=== PATIENT | female | born 1965 | race Caucasian/White ===

== ENCOUNTER 2019-06-16 11:02 | Day surgery (SDC) | payer OTHER ==
[~2019-06-16] VITALS: Ht 170.2 cm; Wt 104.0 kg
[~2019-06-16 11:02] MED LIST: ACEHYDSO AS; AMOCLA875 PO; AMOX500 PO; ATOM40; Amoxicillin875 MG PO; BUPR150ER PO; CEPH500 PO; CIPR750 PO; Desyrel50 MG; HYDACE5 PO; Keflex500 MG PO; METPHE20 PO; METR500 PO; NAPR500 PO; Norco 5-325 Ta1 EACH PO; OXYACE5T PO; PENVK500 PO; RXOXYACE PO; SYNTHROID0.2 MG PO; Synthroid200 MCG PO; TRAZ50 PO; Ultram50 MG PO
[2019-06-16] MEDS ORDERED: HYDR1TAB94 (11:47)
[2019-06-16] MEDS ORDERED: AMPDEX10CR (11:48)
--- NOTE | 2019-06-16 11:53 | NUR ---
06/16/19 1153 Corbin Russo 1ST IV ATTEMPT IN RH UNSUCCESSFUL, ORSC.RXS 2ND IV ATTEMPT IN LH SUCCESSFUL, ORSC.RXS
--- NOTE | 2019-06-16 12:16 | NUR ---
06/16/19 1216 Josseline Patino SIMETHICONE USED DURING PROCEDURE.
== END 2019-06-16 13:05 | disposition home or self-care (01) ==
LOC: ORSCSDS 11:02
PROVIDERS: Internal Medicine Gastroenterology
PROC: 0DBM8ZX Excision of Descending Colon, Via Natural or Artificial Opening Endoscopic, Diagnostic (ICD-10-PCS; principal; 2019-06-16 12:15)
PROC: 0DBK8ZX Excision of Ascending Colon, Via Natural or Artificial Opening Endoscopic, Diagnostic (ICD-10-PCS; principal; 2019-06-16 12:15)
DX: Z12.11 Encounter for screening for malignant neoplasm of colon (principal); D12.2 Benign neoplasm of ascending colon; D12.4 Benign neoplasm of descending colon; K57.30 Diverticulosis of large intestine without perforation or abscess without bleeding; K44.9 Diaphragmatic hernia without obstruction or gangrene; F41.8 Other specified anxiety disorders; F17.210 Nicotine dependence, cigarettes, uncomplicated; Z79.899 Other long term (current) drug therapy
CPT/HCPCS: 88305; J2704; J7120

== ENCOUNTER 2025-07-24 06:05 | Emergency (ER) | payer OTHER ==
[~2025-07-24] VITALS: Ht 167.6 cm; Wt 117.9 kg
[~2025-07-24 06:05] MED LIST changes: +AMPDEX10CR; +HYDR1TAB94
[2025-07-24] MEDS ORDERED: METFORMIN HCL500 M3 PO (06:44)
[2025-07-24] MEDS ORDERED: TRAZ50 PO (06:44)
[2025-07-24 08:14] LABS: BASOPHILS ABSOLUTE AUTO 0.04 K/mm3 (0.00-0.23); BASOPHILS PERCENT AUTO 1 % (0-2); EOSINOPHILS ABSOLUTE AUTO 0.06 K/mm3 (0.00-0.68); EOSINOPHILS PERCENT AUTO 1 % (0-6); Hematocrit 38.9 % (33.0-51.0); Hemoglobin 13.4 g/dL (11.5-16.0); IMMATURE GRAN ABSOLUTE AUTO 0.07 K/mm3 (0.00-0.10); IMMATURE GRAN PERCENT AUTO 1 % (0-1); LYMPHOCYTES ABSOLUTE AUTO 2.18 K/mm3 (0.84-5.20); LYMPHOCYTES PERCENT AUTO 27 % (21-46); MONOCYTES ABSOLUTE AUTO 0.39 K/mm3 (0.16-1.47); MONOCYTES PERCENT AUTO 5 % (4-13); Mean Corpuscular HGB Conc 34.4 g/dL (31.5-36.5); Mean Corpuscular Volume 83 fL (80-100); NEUTROPHILS ABSOLUTE AUTO 5.36 K/mm3 (1.96-9.15); NEUTROPHILS PERCENT AUTO 66 % (41-73); NRBC ABSOLUTE 0.00 K/mm3 (0.00-0.02); NRBC Auto 0.0 /100 WBC (0.0-0.2); Platelet Count 212 K/mm3 (150-400); RDW Coefficient Variation 14.3 % (11.7-14.2); RDW Standard Deviation 42.6 fL (35.1-46.3)
[2025-07-24 08:18] LABS: Alanine Aminotransfer (ALT/SGP 34.0 U/L (12-78); Albumin, Blood 3.7 g/dL (3.4-5.0); Albumin/Globulin Ratio 1.1 (0.8-1.8); Anion Gap 13.0 mmol/L (3-11); Aspartate Aminotrans (AST/SGOT 37.0 U/L (12-37); Bilirubin, Total 1.4 mg/dL (0.1-1.0); Blood Urea Nitrogen 13.0 mg/dL (8-24); CO2, Blood 20.0 mmol/L (21-32); Calcium, Blood 8.2 mg/dL (8.5-10.1); Chloride, Blood 98.0 mmol/L (98-108); Creatinine, Blood 0.74 mg/dL (0.40-1.00); Globulin, Blood 3.3 g/dL (2.2-4.0); Glucose, Blood 488.0 mg/dL (70-99); Potassium, Blood 4.6 mmol/L (3.5-5.5); Sodium, Blood 126.0 mmol/L (136-145); Total Protein, Blood 7.0 g/dL (6.4-8.2)
[2025-07-24 09:00] LABS: Source, Urine Clean Catch
[2025-07-24 09:07] LABS: pH Blood Venous 7.41 (7.34-7.37)
[2025-07-24 09:11] LABS: Bilirubin, Urine Neg (Neg); Color, Urine Yellow (P-Yellow); Glucose Qualitative, Urine 4+ (Neg); Ketones, Urine Neg (Neg); Leukocyte Esterase, Urine 3+ (Neg); Protein, Urine Neg (Neg); Specific Gravity, Urine 1.015 (1.003-1.022); Urobilinogen, Urine NORM (Normal)
[2025-07-24] MEDS ORDERED: CEPH500 PO (09:43)
[2025-07-24 10:09] VITALS: BP 143/89
== END 2025-07-24 10:33 | disposition home or self-care (01) ==
LOC: ER 06:05
PROVIDERS: Student in an Organized Health Care Education/Training Program
DX: E11.65 Type 2 diabetes mellitus with hyperglycemia (principal); N30.90 Cystitis, unspecified without hematuria; Z79.84 Long term (current) use of oral hypoglycemic drugs; Z79.899 Other long term (current) drug therapy; Z90.710 Acquired absence of both cervix and uterus; F17.210 Nicotine dependence, cigarettes, uncomplicated; Z90.49 Acquired absence of other specified parts of digestive tract
CPT/HCPCS: 80053; 81001; 82010; 82803; 82947; 85025; 87086; 99284; J7120

== ENCOUNTER → 2025-07-31 | Outpatient (CLI) | payer OTHER ==
[~2025-07-31] MED LIST changes: +METFORMIN HCL500 M3 PO
[2025-07-31 19:06] LABS: Bacterial Vaginosis PCR Negative (NEGATIVE); Candida glabrata-krusei, PCR NOT DETECTED (NOT DETECT)
[2025-07-31 20:12] LABS: Candida Group, PCR DETECTED (NOT DETECT)
== END ==
LOC: LAB 16:41 → LAB SHORT 16:41
PROVIDERS: Nurse Practitioner Family
DX: B37.31 Acute candidiasis of vulva and vagina (principal)
CPT/HCPCS: 81515